=== PATIENT | female | born 1975 | race Caucasian/White ===

== ENCOUNTER 2019-05-28 20:29 | Emergency (ER) | payer MEDICAID, SELFPAY ==
[2019-05-28 20:32] VITALS: BP 137/82; PULSE 104; RESP 15; TEMP 36.8; O2SAT 100; BMI 19.8
--- NOTE | 2019-05-28 20:36 | ED.RN ---
PT IS A RECOVERING HEROIN ADDICT. SHE HAS REQUESTED THAT OPIATES BE PLACED ON HER ALLERGY LIST. John ROMERO RN [id number]
--- NOTE | 2019-05-28 21:15 | ED.DCSUM_ITS ---
- ER Visit Summary Date of Service: 05/28/19 Chief Complaint: Cough and shortness of breath History of Present Illness: The patient is a 43 F history of asthma, COPD, anxiety disorder and prior drug abuse. 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 States the last 2 weeks she has had a cough of yellowish sputum. And now with wheezing. Denies any vomiting or diarrhea. No fever. No hemoptysis nor any chest pain. Physical Examination: Middle-aged female. No acute distress. Vital signs are stable and afebrile. Pulse ox I percent on room air no signs of hypoxia. H EENT exam nasal congestion. Posterior pharynx normal. Neck nontender no lymphadenopathy. Lungs wet cough with a few scattered expiratory wheezes. No rales or rhonchi. Equal symmetrical. Heart regular rhythm rate about 100 no murmur. Abdomen soft nontender normal bowel sounds no peritoneal signs. Extremities moves all 4. Calves are nontender without edema or cords. Neurologically she is awake and alert. Test Results: Chest x-ray 2 views AP and lateral shows right changes consistent with COPD but no acute process. No pneumonia. Read by myself and the radiologist. Emergency Department Course and Treatment: Patient treated with oral prednisone p.o. 60 mg and a DuoNeb aerosol. Repeat exam patient is doing well at 20 2:30 PM. Wheezing is resolved post aerosol treatment and steroid. Treatment Plan: Prednisone daily. Zithromax Z-PARISH. Follow-up if not improving. Disposition: Discharge Impression: Acute bronchitis COPD flare This note was generated with [employer] dictation software. It may contain incorrect words, spelling, and punctuation that were not noted in review of the chart prior to signing ED Disposition - Plan for ED Patient: Disposition: Home or Assisted Living Instructions: Acute Bronchitis Prescriptions: Prednisone [Deltasone] 40 mg PO DAILY #7 tab Prescription Printed Azithromycin [Zithromax] 250 mg PO DAILY #4 tab Prescription Printed Referrals: Adrián Staton MD [NON-STAFF] - 1 Week if not improving Additional Instructions: Prednisone 40 mg a day for the next 7 days start tomorrow. Zithromax antibiotic first dose given in the ER. 1 pill/day starting tomorrow for 4 more days. Follow-up with eye doctor if not improving. Stop smoking.
--- NOTE | 2019-05-28 21:20 | ED.DEP ---
ED Disposition - Plan for ED Patient: Disposition: Home or Assisted Living Instructions: Acute Bronchitis Prescriptions: Prednisone [Deltasone] 40 mg PO DAILY #7 tab Prescription Printed Azithromycin [Zithromax] 250 mg PO DAILY #4 tab Prescription Printed Referrals: Adrián Staton MD [NON-STAFF] - 1 Week if not improving Additional Instructions: Prednisone 40 mg a day for the next 7 days start tomorrow. Zithromax antibiotic first dose given in the ER. 1 pill/day starting tomorrow for 4 more days. Follow-up with eye doctor if not improving. Stop smoking.
[2019-05-28] MEDS: predniSONE 20 MG Tablet 60 MG PO (21:27)
--- NOTE | 2019-05-28 21:37 | RAD_ITS ---
STUDY: X-RAY CHEST REASON FOR EXAM: Female, 43 years old. Chest pain TECHNIQUE: PA and lateral views of the chest. COMPARISON: None. FINDINGS: The lungs are clear and expanded. There is no demonstrated pleural abnormality. Normal size heart. Normal mediastinum and ruchi. Normal visualized pulmonary arteries. Normal visualized aortic arch and descending thoracic aorta. Normal visualized thoracic spine. Normal visualized ribs, clavicles, and shoulders. There is no demonstrated abnormality of the visualized soft tissue structures of the upper abdomen. RAD/Chest PA and Lateral IMPRESSION: Normal x-ray examination of the chest. Electronically Signed: Kane Ndiaye MD at 21:49 EDT , Service support ,
[2019-05-28] MEDS: Azithromycin 250 MG Tablet 500 MG PO (22:40)
[2019-05-28 22:41] VITALS: RESP 14
== END 2019-05-28 22:41 | disposition home or self-care (01) ==
LOC: ED 21:58
PROVIDERS: Emergency Provider Emergency Medicine
DX: J44.0 Chronic obstructive pulmonary disease with (acute) lower respiratory infection (principal); J20.9 Acute bronchitis, unspecified; J44.1 Chronic obstructive pulmonary disease with (acute) exacerbation; F41.9 Anxiety disorder, unspecified; Z72.0 Tobacco use
CPT/HCPCS: 71046; 99283

== ENCOUNTER 2020-08-16 22:30 | Emergency (ER) | payer MEDICAID, SELFPAY ==
[2020-08-16 22:31] VITALS: BP 113/83; PULSE 96; RESP 15; TEMP 36.3; O2SAT 99; BMI 22.6
== END 2020-08-16 23:50 | disposition left against medical advice (07) ==
LOC: ED 08-17 00:04
PROVIDERS: Emergency Provider Emergency Medicine
DX: R69 Illness, unspecified (principal); Z53.21 Procedure and treatment not carried out due to patient leaving prior to being seen by health care provider

== ENCOUNTER 2021-07-30 17:45 | Emergency (ER) | payer MEDICAID, SELFPAY ==
[2021-07-30 17:46] VITALS: BP 117/85; PULSE 88; RESP 16; TEMP 36.6; O2SAT 100; BMI 20.7
--- NOTE | 2021-07-30 18:50 | EX.ED.DYSGE1 ---
HPI History of Present Illness Chief Complaint: Cold Sx Informant: patient Narrative Narrative: Patient has been caring for someone with Covid. For about 2 to 3 days she has had some nasal congestion and a dry cough. She has no fevers. No myalgias. No nausea vomiting. She states she smokes so she has a cough frequently. Her concern is that she might have Covid. If not she would like to work to get the immunization which she has not had. She has no comorbid illness. She takes no regular medications. Nothing makes her symptoms better or worse. [facility] Medical History ADD (attention deficit disorder) Anxiety Depression Home Medications azithromycin 250 mg PO DAILY #4 tab 05/28/19 [Rx Last Taken Unknown] prednisone 40 mg PO DAILY #7 tab 05/28/19 [Rx Last Taken Unknown] Allergy/AdvReac Type Severity Reaction Status Date / Time Opioids - Morphine Analogues Allergy Other Verified 07/30/21 17:48 Penicillins [PCN] Allergy Anaphylaxis Verified 07/30/21 17:48 metronidazole [From Flagyl] AdvReac Nausea/Vom/ Verified 07/30/21 17:48 Diarrhea Social History Smoking Status: Current every day smoker tobacco type: cigarettes ROS ROS ED Constitutional Constitutional ED: Denies chills, fever(s) or sweats Eyes Eyes: Denies blurry vision or change in vision ENT ENT ED: Reports rhinorrhea and other Details: Mild nasal congestion. ; Denies ear pain or sore throat Cardiovascular Cardiovascular: Denies chest pain or palpitations Respiratory/Chest Respiratory/Chest: Reports cough; Denies dyspnea or sputum Gastrointestinal Gastrointestinal: Denies diarrhea, nausea or vomiting Genitourinary Genitourinary ED: Denies dysuria or hematuria Musculoskeletal Musculoskeletal: Denies arthralgias or myalgias Integumentary Denies rash Neurologic Neurologic: Denies headache(s) Psychiatric Psychiatric: Denies anxiety or depression Allergic/Immunologic Allergic/Immunologic ED: Denies mouth swelling or urticaria EXAM Physical Exam Const Vital Signs: 07/30/21 17:46 Temperature 97.9 F Temperature Source Temporal Pulse Rate 88 Respiratory Rate 16 Blood Pressure 117/85 H Blood Pressure Mean 95 Pulse Ox 100 Oxygen Delivery Method Room Air Patient sitting comfortably on chair. She is awake alert nontoxic in appearance. Positive well nourished and well developed General Appearance ED: well developed and NAD HEENT Reports moist mucous membranes Eyes General Eye ED: Negative for pale conjunctiva or scleral icterus Neck no JVD Resp normal respiratory effort and clear to auscultation bilaterally Effort and Inspection: Negative for pain with movement Auscultation: Negative for rales, rhonchi or wheezes Cardio regular rate, regular rhythm and no murmurs GI normal to inspection, nondistended, normoactive bowel sounds and non-tender Palpation: soft Back/Spine no CVA tenderness Extremity General Extremety ED: Negative for edema or tenderness General Extremity: Negative for edema Neuro oriented x3 Sensorium / Orientation: alert Psych mental status grossly normal Skin no rashes or lesions noted MDM MDM MDM Narrative Medical decision making narrative: Patient's Covid is negative. I went back to talk to the patient. She does not want to stay for vaccinations. We discussed reasons to return and still being cautious in keeping distance from positive people. I encouraged vaccination. Lab Data Attestation: I reviewed the patient's lab results. Discharge Plan Triage Chief Complaint: Cold Sx ED Provider: Alcides Lyman Dx/Rx/DC Orders Clinical Impression: URI, acute Prescriptions: No Action azithromycin 250 MG tablet 250 mg PO DAILY Qty: 4 RF: 0 prednisone 20 MG tablet 40 mg PO DAILY Qty: 7 RF: 0 Primary Care Provider: Care Physician,No Primary Referrals: James Hobbs MD [STAFF PHYSICIAN] - 1 Week if not improving Care Physician,No Primary [Primary Care Provider] - Disposition Disposition: Home, Self Care
== END 2021-07-30 21:11 | disposition home or self-care (01) ==
PROVIDERS: Emergency Provider Emergency Medicine
DX: J06.9 Acute upper respiratory infection, unspecified (principal); F17.210 Nicotine dependence, cigarettes, uncomplicated
CPT/HCPCS: 87426; 99282